=== PATIENT | male | born 1980 | race Two or more races ===

== ENCOUNTER 2020-01-19 09:10 | Emergency (ER) | payer OTHER ==
[~2020-01-19] VITALS: Ht 167.6 cm; Wt 90.7 kg
[~2020-01-19 09:10] MED LIST: QUET300T2 PO
[2020-01-19] MEDS ORDERED: METOPROLOL TARTRATE 25 MG TABLET PO ONE (09:30)
[2020-01-19] MEDS ORDERED: hydrALAZINE HCL IV 20 MG VIAL IV ONE (09:30)
[2020-01-19] MEDS ORDERED: METOPROLOL TARTRATE 25 MG TABLET ONE (09:38)
[2020-01-19] MEDS ORDERED: METOPROLOL TARTRATE 50 MG TABLET ONE (09:39)
[2020-01-19 09:41] LABS: BILIRUBIN,URINE Negative (NEGATIVE); BLOOD, URINE Moderate Ery/uL (NEGATIVE); COLOR,URINE YELLOW (YELLOW); LEUKOCYTE ESTERASE ,URINE Moderate (NEGATIVE); NITRITE, URINE Negative (NEGATIVE); PROTEIN,URINE 100 mg/dl (NEGATIVE); UGLUCOSE Negative (NEGATIVE); UROBILINOGEN,URINE 0.2 EU/dL (0.2)
[2020-01-19 09:52] LABS: BACTERIA,URINE 2+ /HPF (None Seen); SQUAMOUS EPITHELIAL CELL,UR Few /HPF (None Seen)
[2020-01-19 10:08] VITALS: BP 141/90
--- NOTE | 2020-01-19 10:09 | NUR ---
mala HUBBARD to book .
--- NOTE | 2020-01-19 10:11 | NUR ---
Patient discharged to home in stable condition. Written and verbal after care instructions given. Patient verbalizes understanding of instruction.
== END 2020-01-19 10:12 | disposition home or self-care (01) ==
LOC: ER 09:14
DX: N39.0 Urinary tract infection, site not specified (principal); I10 Essential (primary) hypertension; E11.9 Type 2 diabetes mellitus without complications; Z79.899 Other long term (current) drug therapy
CPT/HCPCS: 81001; 87086-TC